=== PATIENT | male | born 1960 | race Caucasian/White ===

== ENCOUNTER 2016-08-21 13:56 | Emergency (ER) | payer OTHER ==
[2016-08-21 14:11] VITALS: BP 144/91
--- NOTE | 2016-08-21 14:25 | EDM.PDOC ---
ED HISTORY OF PRESENT ILLNESS - General Stated Complaint: CP Time Seen by Provider: 08/21/16 13:56 Source of Information: Reports: Patient History Limitations: Reports: No limitations - History of Present Illness INITIAL COMMENTS - FREE TEXT/NARRATIVE: This patient is a pleasant 56 year old male that presents to the ER. Patient reports that three days ago he began to have a burning sensation in the central portion of his chest at the epigastric area. Patient reports that the burning is constant, but waxes and wanes. He reports it does improve some after eating. The patient reports that his father did have an MA. Patient is a nonsmoker. Patient has history of HTN and Hyperlipidemia. Patient does take aspirin 81mg daily and did have this today. The patient has history of 1 year ago having a cardiac stent placed with 97% occlusion of the LAD. Patient reports at that time he had CP worse with activity and shortness of breath. He reports that this does not feel like that. The patient is alert and oriented, conversing in full and complete sentences sitting in the chair in the exam room. The patient reports that the burning pain does not radiate anywhere. Patient denies zamora, dizziness, n, v, soa. Symptom Onset Date: 08/18/16 Timing/Duration: Reports: Day(s): (3) Severity: moderate Location, General: Reports: chest Quality: Reports: Burning Improves with: Reports: Eating Worsens with: Denies: Breathing, Medication, Rest, Movement Associated Symptoms (General): Reports: no other symptoms, chest pain. Denies: confusion, cough, cough w sputum, diaphoresis, fever/chills, headaches, loss of appetite, malaise, nausea/vomiting, rash, seizure, shortness of breath, syncope , weakness - Related Data Allergies/ADRs: Allergies Allergy/AdvReac Type Severity Reaction Status Date / Time codeine Allergy Rash Verified 08/21/16 14:08 Home Meds: Home Meds Amitriptyline [Elavil] 10 mg PO BEDTIME 08/21/16 [History] Aspirin [Halfprin] 81 mg PO DAILY 08/21/16 [History] Citalopram [Celexa] 10 mg PO BEDTIME 08/21/16 [History] Lisinopril 10 mg PO DAILY 08/21/16 [History] Metoprolol Succinate 25 mg PO DAILY 08/21/16 [History] Omeprazole 20 mg PO DAILY 08/21/16 [History] Prasugrel HCl [Effient] 10 mg PO DAILY 08/21/16 [History] Rosuvastatin [Crestor] 20 mg PO BEDTIME 08/21/16 [History] ED ROS GENERAL - Review of Systems Review Of Systems: See Below Constitutional: Reports: no symptoms HEENT: Reports: No symptoms Respiratory: Reports: No Symptoms. Denies: Shortness of Breath Cardiovascular: Reports: Chest pain Endocrine: Reports: no symptoms GI/Abdominal: Reports: Abdominal pain (epigastric) : Reports: no symptoms Musculoskeletal: Reports: no symptoms Skin: Reports: no symptoms Neurological: Reports: No Symptoms Psychiatric: Reports: No symptoms Hematologic/Lymphatic: Reports: no symptoms Immunologic: Reports: no symptoms ED EXAM, GENERAL - Physical Exam Exam: See Below Exam Limited By: No limitations General Appearance: alert, WD/WN, no apparent distress Eye Exam: bilateral eye: normal inspection Ears: normal external exam, normal canal, hearing grossly normal, normal TMs Ear Exam: bilateral ear: auricle normal, canal normal, TM normal Nose: normal inspection, normal mucosa, no blood Throat/Mouth: Normal inspection, Normal lips, Normal teeth, Normal gums, Normal oropharynx, Normal voice, No airway compromise Head: atraumatic, normocephalic Neck: normal inspection, supple, non-tender, full range of motion Respiratory/Chest: no respiratory distress, lungs clear, normal breath sounds, no accessory muscle use, chest non-tender Cardiovascular: normal peripheral pulses, regular rate, rhythm, no edema, no gallop, no JVD, no murmur, no rub Peripheral Pulses: 2+: radial (L), radial (R) GI/Abdominal: soft, tender (epigastric) Back Exam: normal inspection, full range of motion Extremities: normal inspection Neurological: alert, oriented, normal cognition, normal gait, no motor/sensory deficits Psychiatric: normal affect, normal mood Skin Exam: Warm, Dry, Intact, Normal color, No rash EKG INTERPRETATION EKG Date: 08/21/16 Time: 14:07 Rhythm: NSR Rate (beats/min): 68 [place]: normal P-wave: present QRS: normal ST-T: normal QT: normal Comparison: NA - no prior EKG Course - Vital Signs Last Recorded V/S: Last Vital Signs Temp 97.5 F 08/21/16 13:56 Pulse 81 08/21/16 13:56 Resp 20 08/21/16 13:56 BP 144/91 H 08/21/16 13:56 Pulse Ox 96 08/21/16 13:56 - Orders/Labs/Meds Orders: Active Orders 24 hr Category Date Time Status EKG Documentation Completion [RC] STAT Care 08/21/16 14:03 Active Chest 2V [CR] Stat Exams 08/21/16 14:03 Taken Labs: Laboratory Tests 08/21/16 08/21/16 08/21/16 Range/Units 14:00 14:03 14:03 WBC 5.8 (5.0-10.0) 10^3/uL RBC 5.29 (4.50-6.00) 10^6/uL Hgb 15.3 (14.0-18.0) g/dL Hct 44.4 (40.0-54.0) % MCV 83.9 (82.0-94.0) fL MCH 28.9 (27.0-32.0) pg MCHC 34.5 (33.0-38.0) g/dL RDW Coeff of Rafal 12.4 (11.0-15.0) % Plt Count 304 (150-400) 10^3/uL Neut % (Auto) 54.0 (35-85) % Lymph % (Auto) 32.8 (10-55) % [place] % (Auto) 9.6 (0-16) % Eos % (Auto) 2.7 (0-5) % Baso % (Auto) 0.9 (0-3) % Neut # (Auto) 3.14 (1.80-7.00) 10^3/uL Lymph # (Auto) 1.91 (1.00-4.80) 10^3/uL [place] # (Auto) 0.56 (0.00-0.80) 10^3/uL Eos # (Auto) 0.16 (0.00-0.45) 10^3/uL Baso # (Auto) 0.05 10^3/uL PT 10.8 (9.7-12.3) SEC INR 1.00 (0.92-1.18) APTT 26.8 (24.5-30.9) SEC Sodium 139 (136-145) mEq/L Potassium 4.3 (3.5-5.0) mEq/L Chloride 101 (98-106) mEq/L Carbon Dioxide 29 (21-32) mmol/L BUN 18 (7-18) mg/dL Creatinine 1.0 (0.7-1.3) mg/dL Est Cr Clr Drug Dosing 64.80 mL/min Estimated GFR (MDRD) > 60 (>=60) mL/min Glucose 115 H (75-99) mg/dL Calcium 9.1 (8.4-10.1) mg/dL Total Bilirubin 1.1 H (0.0-1.0) mg/dL AST 18 (15-37) U/L ALT 37 (12-78) U/L Alkaline Phosphatase 77 (46-116) U/L Lactate Dehydrogenase 136 (100-190) U/L Creatine Kinase 60 (35-232) U/L Troponin I < 0.017 (0.00-0.06) ng/mL Total Protein 7.0 (6.4-8.2) g/dL Albumin 4.0 (3.4-5.0) g/dL Meds: Medications Discontinued Medications Generic Name Dose Route Start Last Admin Trade Name Freq PRN Reason Stop Dose Admin Al Hydroxide/Mg Hydroxide 30 0 ml 08/21/16 15:03 08/21/16 15:11 ml/ Lidocaine HCl 15 ml PO 08/21/16 15:04 45 ml ONETIME ONE Administration - Radiology Interpretation Free Text/Narrative:: CXR: No infiltrate, cardiomegaly, pulmonary edema. - Re-Assessments/Exams Free Text/Narrative Re-Assessment/Exam: 08/21/16 15:41 Patient reports after GI [place] that his burning pain is almost nearly resolved. Patient reports he thinks it is acid reflux, i tend to agree. I have called and spoke to photogrammetric stereo compiler Dr. Car about this patient. He thinks this is GI related. Cardiology will see patient at his next scheduled appointment in October. Will discharge. Stable. Departure - Departure Time of Disposition: 15:44 Disposition: Home, Self-Care 01 Condition: good Clinical Impression: Gastroesophageal reflux disease Qualifiers: Esophagitis presence: without esophagitis Qualified Code(s): K21.9 - Gastro- esophageal reflux disease without esophagitis Instructions: Gastroesophageal Reflux Disease, Adult Additional Instructions: Followup with cardiology as scheduled Followup with your primary care provider Followup with GI as needed Return to the ER for worsening of condition or any emergent concerns - My Orders Last 24 Hours: My Active Orders 08/21/16 14:03 EKG Documentation Completion [RC] STAT Chest 2V [CR] Stat - Assessment/Plan Last 24 Hours: My Active Orders 08/21/16 14:03 EKG Documentation Completion [RC] STAT Chest 2V [CR] Stat
[2016-08-21 14:34] LABS: CHLORIDE,CL 101 mEq/L (98-106); SODIUM,NA 139 mEq/L (136-145)
[2016-08-21] MEDS ORDERED: Alum Hydrox/Mag Hydrox/Simeth 30 ML, Lidocaine 2% 15 ML PO ONE ×2 (15:03)
== END 2016-08-21 15:54 | disposition home or self-care (01) ==
LOC: CC.ED 13:56
DX: K21.9 Gastro-esophageal reflux disease without esophagitis (principal); Z88.8 Allergy status to other drugs, medicaments and biological substances; Z79.82 Long term (current) use of aspirin; Z79.899 Other long term (current) drug therapy
CPT/HCPCS: 36415; 71020; 80053; 82550; 83615; 84484; 85025; 85610; 85730; 93005; 99285; A9270